=== PATIENT | male | born 1950 ===

== ENCOUNTER → 2018-02-14 | Emergency (ER) | payer OTHER ==
[~2018-02-14] VITALS: Ht 175.3 cm; Wt 77.1 kg
[~2018-02-14] MED LIST: COZAAR50 MG; KETO10TA2 PO; ORPHENADRINE C100 MG PO
== END | disposition home or self-care (01) ==
LOC: ER 15:22
DX: S22.42XA Multiple fractures of ribs, left side, initial encounter for closed fracture (principal); W01.198A Fall on same level from slipping, tripping and stumbling with subsequent striking against other object, initial encounter; Y93.89 Activity, other specified; Y92.013 Bedroom of single-family (private) house as the place of occurrence of the external cause; Y99.8 Other external cause status

== ENCOUNTER 2023-03-05 01:30 | Emergency (ER) | payer OTHER ==
[~2023-03-05] VITALS: Ht 170.2 cm; Wt 70.3 kg
[2023-03-05] MEDS ORDERED: LIPITOR80 MG PO (01:44)
[2023-03-05] MEDS ORDERED: DUI500 PO (02:41)
[2023-03-05] MEDS ORDERED: MUPIROCIN1 G1 TOP (02:56)
== END 2023-03-05 02:59 ==
LOC: ER 01:30
DX: S01.112A Laceration without foreign body of left eyelid and periocular area, initial encounter (principal); S05.8X2A Other injuries of left eye and orbit, initial encounter; W10.8XXA Fall (on) (from) other stairs and steps, initial encounter; Y93.89 Activity, other specified; Y92.89 Other specified places as the place of occurrence of the external cause; Y99.8 Other external cause status; I10 Essential (primary) hypertension